=== PATIENT | female | born 1980 ===

== ENCOUNTER 2018-05-04 11:07 | Emergency (ER) | payer SELFPAY ==
[2018-05-04 18:18] VITALS: BMI 24.4
== END 2018-05-04 18:18 | disposition home or self-care (01) ==
LOC: ED 11:07
DX: J11.1 Influenza due to unidentified influenza virus with other respiratory manifestations (principal)

== ENCOUNTER 2018-09-19 18:15 | Emergency (ER) | payer BC ==
[2018-09-19 18:29] VITALS: BMI 24.7
[2018-09-19 18:30] VITALS: BP 114/78; PULSE 106; RESP 18; TEMP 99.7; O2SAT 97
[2018-09-19] MEDS ORDERED: Naproxen 550 mg Tab PO STA (18:58)
[2018-09-19] MEDS ORDERED: Tmp-Smz 800 mg-160 mg DS Tab PO STA (18:58)
[2018-09-19] MEDS ORDERED: TDAP Vaccine 0.5 mL Syr IM ONE (18:58)
[2018-09-19] MEDS ORDERED: Lidocaine 1%/Epinephrine 1:100000 30 ml vial IJ STA (18:59)
--- NOTE | 2018-09-19 19:04 | ED PDOC ---
Arrival/HPI - General Chief Complaint: Fever Time Seen by Provider: 09/19/18 18:17 Historian: Patient - History of Present Illness Narrative History of Present Illness (Text): 09/19/18 19:09 38 yo F presents to the ER complaining of red swollen lump to the R groin for the past few days. Reports having similar symptoms in the past. Denies any fever, chills, abdominal pain, N/V, urinary symptoms, joint pain. Has no other complaints. Past Medical History - Infectious Disease Hx of Infectious Diseases: None - Psychiatric Hx Substance Use: No - Surgical History Hx Section: Yes (x 2) Family/Social History Family/Social History: No Known Family HX Smoking Status: Never Smoked Hx Alcohol Use: No Hx Substance Use: No Allergies/Home Meds Allergies/Adverse Reactions: Allergies No Known Allergies Allergy (Verified 05/04/18 18:18) Review of Systems - Review of Systems Constitutional: absent: Fatigue, Fevers Gastrointestinal: absent: Abdominal Pain, Diarrhea, Vomiting Genitourinary Female: absent: Dysuria, Frequency, Hematuria Musculoskeletal: absent: Arthralgias, Back Pain, Neck Pain Skin: Abscess. absent: Rash, Skin Lesions Physical Exam Vital Signs Temp Pulse Resp BP Pulse Ox 09/19/18 18:29 99.7 F H 106 H 18 114/78 97 Temperature: Afebrile Blood Pressure: Normal Pulse: Tachycardic Respiratory Rate: Normal Appearance: Positive for: Well-Appearing, Non-Toxic, Comfortable Pain Distress: Mild Mental Status: Positive for: Alert and Oriented X 3 - Systems Exam Abdomen: No: Tenderness, Distention Upper Extremity: Present: Normal Inspection. No: Edema Lower Extremity: Present: Normal Inspection. No: Edema Neurological: Present: GCS=15, CN II-XII Intact, Speech Normal, Motor Func Grossly Intact, Normal Sensory Function Skin: Present: Warm, Dry, Normal Color, Abscess (+erythematous tender fluctuant abscess to R groin/mons pubis ~3-4 cm in size). No: Rashes Psychiatric: Present: Alert, Oriented x 3, Normal Insight, Normal Concentration Medical Decision Making ED Course and Treatment: 09/19/18 19:07 Patient medicated with keflex po, bactrim po, naprosyn po, tdap IM. I&D performed by [facility] and patient tolerated the procedure well. Advised to have wound checked and packing removal done after 2 days. - Medication Orders Current Medication Orders: Cephalexin Monohydrate (Keflex) 500 mg PO STAT STA; Protocol Stop: 09/19/18 18:59 Lidocaine/Epinephrine (Lidocaine 1%/Epinephrine 1:598198 30 Ml) 5 ml IJ STAT STA Stop: 09/19/18 19:00 Naproxen (Anaprox Ds) 550 mg PO ONCE STA Stop: 09/19/18 18:59 Tetanus/Reduced Diphtheria/Acell Pertussis (Boostrix Vaccine Inj) 0.5 ml IM .ONCE ONE Stop: 09/19/18 18:59 Trimethoprim/Sulfamethoxazole (Bactrim Ds Tab) 2 tab PO STAT STA; Protocol Stop: 09/19/18 18:59 Procedures - Incision and Drainage Site: R groin/mons pubis Blade Size: 11 I & D Procedure: betadine prep, sterile drapes applied, sterile dressing applied Progress: Purulent drainage was produced, packing inserted. Clean dressing applied. - PA / EQUIPMENT LEAD / Resident Statement MD/DO has reviewed & agrees with the documentation as recorded. Disposition/Present on Arrival - Present on Arrival Any Indicators Present on Arrival: No History of DVT/PE: No History of Uncontrolled Diabetes: No Urinary Catheter: No History of Decub. Ulcer: No History Surgical Site Infection Following: None - Disposition Have Diagnosis and Disposition been Completed?: Yes Diagnosis: Abscess Disposition: HOME/ ROUTINE Disposition Time: 19:15 Patient Plan: Discharge Patient Problems: Current Active Problems Problem Status Onset Abscess Acute Condition: STABLE Discharge Instructions (ExitCare): Abscess Incision and Drainage Additional Instructions: Follow up with pmd or referral provided without fail in 2 days for wound check and packing removal, if unable to then return to the ER. Take medications as prescribed. Clean wound and change dressings daily. Return to the ER at any time for any new or worsening symptoms. Prescriptions: Cephalexin [Keflex] 500 mg PO Q6 #28 capsule Naproxen 500 mg PO BID PRN #20 tablet PRN Reason: Pain, Moderate (4-7) Sulfamethoxazole/Trimethoprim [Bactrim DS 800 mg-160 mg] 2 tab PO BID #28 tab Referrals: Artie Alanis MD [Medical Doctor] - Follow up with primary Forms: [employer] ([place]), WORK NOTE
[2018-09-19] MEDS ORDERED: Lidocaine 1% Inj (20ml) ONE (19:32)
== END 2018-09-19 20:05 | disposition home or self-care (01) ==
LOC: ED 18:15
DX: L02.214 Cutaneous abscess of groin (principal); Z23 Encounter for immunization